=== PATIENT | female | born 1940 | race Asian ===

== ENCOUNTER 2024-11-25 16:22 | Emergency (ER) | payer MEDICARE, MEDICAID ==
[~2024-11-25] VITALS: Ht 152.4 cm; Wt 54.5 kg
[2024-11-25 16:32] VITALS: BP 140/87; PULSE 68; RESP 18; TEMP 98.1; O2SAT 97
[2024-11-25] MEDS ORDERED: LOSA-382 PO (16:39)
[2024-11-25] MEDS ORDERED: HYDR25TA2 PO (16:39)
[2024-11-25] MEDS ORDERED: ATOR20TA PO (16:39)
[2024-11-25] MEDS ORDERED: CALC-1085 PO (16:39)
[2024-11-25] MEDS ORDERED: ALEN70TA65 PO (16:39)
[2024-11-25 17:31] LABS: PLATELET COUNT (AUTO) 293 K/uL (150-450); RED BLOOD CELL COUNT(AUTO) 4.10 MIL/uL (4.00-5.20); RED CELL DISTRIBUTION WIDTH 13.5 % (11.5-14.5); WHITE BLOOD COUNT (AUTO) 6.8 K/uL (4.5-11.0)
[2024-11-25 17:39] LABS: CALCIUM, TOTAL 9.1 mg/dL (8.8-10.5); CREATININE 1.14 mg/dL (0.60-1.30); GLOMERULAR FILTR. RATE CALC 46 mL/min (>60); GLUCOSE,RANDOM 111 mg/dL (70-110); SODIUM SERUM 138 mmol/L (136-145); UREA NITROGEN, BLOOD 31 mg/dL (7-18)
[2024-11-25 17:48] LABS: TROPONIN I-HIGH SENSITIVITY 7 ng/L (<51)
[2024-11-25 18:26] LABS: APPEARANCE,URINE CLEAR (CLEAR); GLUCOSE, URINE (UA) NEGATIVE (NEGATIVE); LEUKOCYTE ESTERASE ,URINE NEGATIVE (NEGATIVE); NITRATE,URINE NEGATIVE (NEGATIVE); OCCULT BLOOD,URINE NEGATIVE (NEGATIVE); SPECIFIC GRAVITIY, URINE 1.009 (1.003-1.030)
[2024-11-25] MEDS ORDERED: MECL-226 PO (21:14)
== END 2024-11-25 21:43 | disposition home or self-care (01) ==
LOC: EMS 16:22
DX: G90.9 Disorder of the autonomic nervous system, unspecified (principal); R42 Dizziness and giddiness; I10 Essential (primary) hypertension; Z79.899 Other long term (current) drug therapy
CPT/HCPCS: 71045; 80048; 81003; 84484; 85025; 93005; 99285; 36415-L1; 36415-TC